=== PATIENT | female | born 1975 | race Caucasian/White ===

== ENCOUNTER 2018-10-30 15:48 | Emergency (ER) | payer BC, MEDICAID ==
[2018-10-30] MEDS ORDERED: DEXAMETHASONE SOD PHOS INJ 10 MG/1 ML VIAL IM ONE (17:13)
--- NOTE | 2018-10-30 17:25 | ER Document Report ---
HPI - HPI Time Seen by Provider: 10/30/18 16:39 Pain Level: Denies Context: Patient is a 43-year-old female who presents to the emergency department with a chief complaint of rash. Patient reports a rash throughout her whole body excluding her chest, neck and face. Patient reports this rash has been present for 3 weeks and has continued to worsen. Patient states that initially she felt like she was stung by something to the right middle finger and developed a rash that was localized to the hand. Patient states that the sting kerry has now gone but the rash has worsened. Patient states she was seen at the urgent care 2 weeks ago and given Pepcid, Zyrtec and 1 week of oral prednisone. Patient states she has been using hydrocortisone cream for discomfort. Patient reports despite these medications her rash has continued to get worse. Patient reports itching all over. Patient states she scratches so profusely that some areas start to break open and bleed. Patient denies any new exposure to animals, pets in the house, detergent, perfume, make-up, lotion, food or any she could have come in contact with. Patient denies fever. Patient denies shortness of breath or difficulty breathing or swallowing. Patient denies recent illness, sore throat, cold or fever. - CONSTITUTIONAL Constitutional: DENIES: Fever, Chills - REPRODUCTIVE Reproductive: DENIES: : - MUSCULOSKELETAL Musculoskeletal: REPORTS: Extremity pain - rash Past Medical History - General Information source: Patient - Social History Smoking Status: Never Smoker Frequency of alcohol use: None Drug Abuse: None Lives with: Family Family History: None Patient has suicidal ideation: No Patient has homicidal ideation: No - Past Medical History Cardiac Medical History: Reports: None Pulmonary Medical History: Reports: None EENT Medical History: Reports: None Neurological Medical History: Reports: None Endocrine Medical History: Reports: None Renal/ Medical History: Reports: None. Denies: Hx Peritoneal Dialysis Malignancy Medical History: Reports: None GI Medical History: Reports: None Musculoskeletal Medical History: Reports None Skin Medical History: Reports None Psychiatric Medical History: Reports: None Traumatic Medical History: Reports: None Infectious Medical History: Reports: None Past Surgical History: Reports: None - Immunizations Hx Diphtheria, Pertussis, Tetanus Vaccination: Yes - 05/03/12 Vertical Provider Document - CONSTITUTIONAL Agree With Documented VS: Yes Exam Limitations: No Limitations General Appearance: No Apparent Distress - INFECTION CONTROL TRAVEL OUTSIDE OF THE [place] IN LAST 30 DAYS: No - HEENT HEENT: Atraumatic, Normal ENT Exam, Normocephalic, PERRLA - RESPIRATORY Respiratory: Breath Sounds Normal, No Respiratory Distress - CARDIOVASCULAR Cardiovascular: Regular Rate, Regular Rhythm - GI/ABDOMEN Gastrointestinal: Abdomen Soft, Abdomen Non-Tender, Normal Bowel Sounds - NEURO Level of Consciousness: Awake, Alert, Appropriate - DERM Integumentary: Warm, Rash Notes: Patient has a scattered macular papular rash with areas that do felipe with pressure. Patient has certain areas that appear to have been scratched or irritated with dried blood. There is no surrounding cellulitis. The rash does not extend to the chest wall, neck or face. Course - Re-evaluation Re-evalutation: 10/30/18 21:03 We will give patient Vistaril. I did explain to her that this causes sedation and will make her more sleepy than Benadryl. Patient aware not to take Vistaril with Benadryl or drive a vehicle. Will give patient a dose of steroids. Ultimately the patient does need to follow-up with dermatology. I did inform the patient that it appears that something she is coming in contact with is causing this rash. Patient to return if she has facial swelling, lip swelling, difficulty breathing or if the rash does not get better. - Vital Signs Vital signs: Temp Pulse Resp BP Pulse Ox 98.8 F 97 18 139/83 H 96 10/30/18 15:52 10/30/18 15:52 10/30/18 15:52 10/30/18 15:52 10/30/18 15:52 Discharge - Discharge Clinical Impression: Rash Condition: Stable Disposition: HOME, SELF-CARE Additional Instructions: Today you are seen in the emergency department for a rash. Unfortunately I do not know what is causing this rash but it does appear you are having allergic reaction to something you are being exposed to over the past 3 weeks. I do not think that this rash is related to the possible staying as much as the constant exposure to an allergen. We have given you a dose of Decadron which is a steroid. I am also prescribing Vistaril. Vistaril can be used for itching and is an antihistamine. Do not take this while taking Benadryl. Vistaril is very sedating so do not take other sedating medications while on this medicine and do not drive or operate heavy machinery while on this medication. He is continue to take the Pepcid and Zyrtec as previously prescribed. Please return if the rash causes facial swelling or continues to get worse you develop a fever or any other concerning signs or symptoms. Prescriptions: Hydroxyzine Pamoate [Vistaril 25 mg Capsule] 50 mg PO BID #30 capsule Referrals: DARLENE GODOY DO [ACTIVE STAFF] - Follow up as needed
[2018-10-30 17:48] VITALS: BP 117/80
== END 2018-10-30 17:42 | disposition home or self-care (01) ==
LOC: ER 15:48
DX: R21 Rash and other nonspecific skin eruption (principal)
CPT/HCPCS: 99282; 96372; J1100